=== PATIENT | male | born 1960 | race Caucasian/White ===

== ENCOUNTER 2016-06-30 10:29 | Observation (INO) | payer OTHER ==
[~2016-06-30] VITALS: Ht 176.5 cm; Wt 124.7 kg
[~2016-06-30 10:29] MED LIST: ALEVE220 MG PO; ALPRAZOLAM0.25 M2 PO; AMBIEN10 MG PO; AMLODIPINE BESY10 MG PO; ASPIRIN325 MG PO; Aspirin PO; CHANTIX1 MG PO; FLEXERIL10 MG PO; IMODIUM A-D2 MG PO; LEVAQUIN750 MG PO; LISINOPRIL20 MG PO; LO-DOSE ASPIRIN81 M2 PO; MAG-OXIDE400 MG PO; MAGNESIUM250 M1 PO; MOTRIN800 MG PO; MULTIPLE VITAM1 EACH PO; NAPROSYN500 MG PO; NORCO 5/3251 TABLET PO; NORVASC10 MG PO; Norvasc PO; PERCOCET 5/31 TABLET PO; POTASSIUM GLUCO2 MEQ PO; PRILOSEC OTC20 MG PO; PRILOSEC20 MG PO; PRILOSEC40 MG PO; PRINIVIL20 MG PO; PROAIR HFA8.5 GM IH; PROMETHAZINE HC25 M1 PO; PROZAC40 MG PO; PROzac PO; QUETIAPINE FUM200 MG PO; SEROQUEL200 MG PO; SEROquel PO; Theragran PO; VITAMIN D1000 INTUN PO; ZOFRAN4 MG PO; Zestril,Prinivil PO
[2016-06-30 12:59] LABS: HEMATOCRIT 40.2 % (38.0-50.0); MCH 27.8 PG (29.0-34.0); MCHC 33.6 G/DL (30.0-36.0); MCV 82.9 FL (86-99); MEAN PLAT.VOLUME 11.9 uM^3 (9.0-12.4); PLATELET COUNT 229 K/uL (156-360); RBC DIS.WIDTH-CV 14.4 % (11.8-14.6); RBC DIS.WIDTH-SD 42.8 % (39-53); RED BLOOD COUNT 4.85 M/uL (4.00-5.50); WHITE BLOOD COUNT 9.7 K/uL (4.1-10.2)
[2016-06-30 13:11] LABS: CHLORIDE 105 mEq/L (99-109); SODIUM 138 mEq/L (136-147)
[2016-06-30 13:12] LABS: GLUCOSE 95 mg/dL (70-99)
[2016-06-30 13:14] LABS: ANION GAP 9 MEQ/L (2-14)
[2016-06-30 13:16] LABS: GFR ESTIMATE (CALCULATED) > 59 mL/min/
[2016-06-30 13:17] LABS: UREA NITROGEN (BUN) 8 mg/dL (9-23)
[2016-06-30 13:26] LABS: TROP-I INTERPRETATION NEGATIVE; TROPONIN-I < 0.01 ng/mL (0.0-0.30)
[2016-06-30 16:34] LABS: TROP-I INTERPRETATION NEGATIVE; TROPONIN-I < 0.01 ng/mL (0.0-0.30)
[2016-06-30] MEDS ORDERED: LITHIUM CARBON300 MG PO (16:53)
[2016-06-30] MEDS ORDERED: PROZAC20 MG PO (16:53)
[2016-06-30] MEDS ORDERED: XANAX0.5 MG PO (16:53)
[2016-06-30] MEDS ORDERED: LITHIUM CARBON300 M1 PO (16:53)
[2016-06-30 23:11] LABS: TROP-I INTERPRETATION NEGATIVE; TROPONIN-I < 0.01 ng/mL (0.0-0.30)
[2016-06-30 23:34] VITALS: BP 133/83
[2016-07-01 04:37] VITALS: BP 118/65
[2016-07-01 05:36] LABS: ANION GAP 7 MEQ/L (2-14); CHLORIDE 107 MEQ/L (99-109); GFR ESTIMATE (CALCULATED) > 59 mL/min/; POTASSIUM 4.3 MEQ/L (3.7-5.4); SAMPLE HEMOLYSIS CHECK 0; SAMPLE ICTERIC CHECK 0; SAMPLE LIPEMIA CHECK 0; SODIUM 137 MEQ/L (136-147); UREA NITROGEN (BUN) 9 mg/dL (9-23)
[2016-07-01 05:44] LABS: GLUCOSE 152 mg/dL (70-99)
[2016-07-01 05:53] LABS: TROP-I INTERPRETATION NEGATIVE; TROPONIN-I < 0.01 ng/mL (0.0-0.30)
[2016-07-01 07:52] VITALS: BP 136/75
[2016-07-01 11:48] VITALS: BP 122/80
[2016-07-01 15:45] VITALS: BP 142/92
[2016-07-01 21:11] LABS: C DIFF TOXIN NEGATIVE (NEGATIVE); PROBE CHECK PASS; SPECIMEN PROCESSING CONTROL PASS
[2016-07-02 00:10] VITALS: BP 126/72
[2016-07-02 04:05] VITALS: BP 162/72
[2016-07-02 07:38] VITALS: BP 153/98
[2016-07-02] MEDS ORDERED: LIPITOR40 MG PO (10:29)
[2016-07-02] MEDS ORDERED: ZOFRAN4 MG PO (10:35)
[2016-07-02] MEDS ORDERED: IMODIUM A-D2 M2 PO (10:36)
[2016-07-02 11:03] VITALS: BP 107/57
== END 2016-07-02 13:30 | disposition home or self-care (01) ==
LOC: EME 10:29 → EDOF 18:01 → 5WEST 18:01 → EDOF 18:01 → 5WEST 21:26
PROVIDERS: Family Medicine; Nurse Practitioner Family; Physician Assistant Medical
DX: R07.89 Other chest pain (principal); R11.2 Nausea with vomiting, unspecified; R19.7 Diarrhea, unspecified; F32.9 Major depressive disorder, single episode, unspecified; I10 Essential (primary) hypertension; E78.5 Hyperlipidemia, unspecified; D47.Z2 Castleman disease; J30.9 Allergic rhinitis, unspecified; F41.9 Anxiety disorder, unspecified; R68.84 Jaw pain; M54.2 Cervicalgia; F17.210 Nicotine dependence, cigarettes, uncomplicated; Z87.898 Personal history of other specified conditions; Z83.49 Family history of other endocrine, nutritional and metabolic diseases; Z83.3 Family history of diabetes mellitus; Z80.0 Family history of malignant neoplasm of digestive organs; Z88.5 Allergy status to narcotic agent
CPT/HCPCS: 71020; 71275; 74000; 74177; 80048; 84484; 85027; 87493; 93005; 94660; 99281; 99285; G0378; J1200; J1650; J1885; J2405; J2765; J2920; J7030; S0028

== ENCOUNTER 2016-07-29 07:39 | Emergency (ER) | payer OTHER ==
[~2016-07-29] VITALS: Ht 177.8 cm; Wt 123.2 kg
[~2016-07-29 07:39] MED LIST changes: +IMODIUM A-D2 M2 PO; +LIPITOR40 MG PO; +LITHIUM CARBON300 M1 PO; +LITHIUM CARBON300 MG PO; +PROZAC20 MG PO; +XANAX0.5 MG PO
[2016-07-29] MEDS ORDERED: PROZAC40 MG PO (07:53)
[2016-07-29 08:19] LABS: EOSINOPHIL (%) 4.6 % (0-5); EOSINOPHIL COUNT 0.3 K/uL (0-0.3); HEMATOCRIT 40.1 % (38.0-50.0); IMMATURE GRANULOCYTE (%) 0.4 % (0.0-0.7); INSTRUMENT ABS NEUTROPHIL CT 3.4 K/uL; LYMPHOCYTE COUNT 1.2 K/uL (1.0-2.8); MCH 27.5 PG (29.0-34.0); MCHC 31.7 G/DL (30.0-36.0); MEAN PLAT.VOLUME 12.1 uM^3 (9.0-12.4); MONOCYTE COUNT 0.7 K/uL (0-0.8); NEUTROPHIL (%) 59.7 % (45-76); NEUTROPHIL COUNT 3.4 K/uL (1.8-6.4); RBC DIS.WIDTH-CV 14.4 % (11.8-14.6); RBC DIS.WIDTH-SD 46.2 % (39-53); RED BLOOD COUNT 4.61 M/uL (4.00-5.50)
[2016-07-29 08:26] LABS: PLATELET COUNT 148 K/uL (156-360); WHITE BLOOD COUNT 5.6 K/uL (4.1-10.2)
[2016-07-29 08:27] LABS: CHLORIDE 108 mEq/L (99-109); POTASSIUM 4.2 mEq/L (3.7-5.4); SODIUM 140 mEq/L (136-147)
[2016-07-29 08:29] LABS: GLUCOSE 103 mg/dL (70-99)
[2016-07-29 08:30] LABS: ANION GAP 6 MEQ/L (2-14)
[2016-07-29 08:33] LABS: GFR ESTIMATE (CALCULATED) > 59 mL/min/
[2016-07-29 08:34] LABS: UREA NITROGEN (BUN) 13 mg/dL (9-23)
[2016-07-29 08:56] LABS: INFLUENZA A VIRAL ANTIGEN NEGATIVE; INFLUENZA B VIRAL ANTIGEN NEGATIVE
[2016-07-29] MEDS ORDERED: ZITHROMAX Z-PA250 MG PO (10:10)
[2016-07-29 10:21] VITALS: BP 115/67
== END 2016-07-29 10:22 | disposition home or self-care (01) ==
LOC: EME 07:39
PROVIDERS: Emergency Medicine
DX: B34.9 Viral infection, unspecified (principal); F31.9 Bipolar disorder, unspecified; Z87.891 Personal history of nicotine dependence
CPT/HCPCS: 71020; 80048; 85025; 87502; 99281; 99284

== ENCOUNTER 2017-02-08 14:54 | Emergency (ER) | payer OTHER ==
[~2017-02-08] VITALS: Ht 175.3 cm; Wt 111.5 kg
[~2017-02-08 14:54] MED LIST changes: +LIPITOR20 MG PO; +REQUIP2 MG PO; -XANAX0.5 MG PO; +XANAX1 MG PO; +ZITHROMAX Z-PA250 MG PO
[2017-02-08 15:51] LABS: HEMATOCRIT 42.9 % (38.0-50.0); MCH 27.6 PG (29.0-34.0); MCHC 33.6 G/DL (30.0-36.0); MCV 82.2 FL (86-99); MEAN PLAT.VOLUME 11.1 uM^3 (9.0-12.4); PLATELET COUNT 244 K/uL (156-360); RBC DIS.WIDTH-CV 13.7 % (11.8-14.6); RBC DIS.WIDTH-SD 40.6 % (39-53); RED BLOOD COUNT 5.22 M/uL (4.00-5.50)
[2017-02-08 16:03] LABS: CHLORIDE 103 mEq/L (99-109); POTASSIUM 3.9 mEq/L (3.7-5.4); SODIUM 137 mEq/L (136-147)
[2017-02-08 16:05] LABS: GLUCOSE 99 mg/dL (70-99)
[2017-02-08 16:06] LABS: ANION GAP 11 MEQ/L (2-14)
[2017-02-08 16:07] LABS: TOTAL BILIRUBIN 0.6 mg/dL (0.0-1.0)
[2017-02-08 16:09] LABS: ALKALINE PHOSPHATASE 117 IU/L (3-129); GFR ESTIMATE (CALCULATED) > 59 mL/min/
[2017-02-08 16:10] LABS: UREA NITROGEN (BUN) 12 mg/dL (9-23)
[2017-02-08 17:31] LABS: ADD MIUA? YES; BILIRUBIN NEGATIVE; BLOOD NEGATIVE; COLOR YELLOW ((YELLOW)); GLUCOSE (STRIP) NEGATIVE; KETONES 20; LEUKOCYTES TRACE; NITRITE NEGATIVE; PROTEIN (STRIP) 30
[2017-02-08 17:44] LABS: BACTERIA RARE /HPF; EPITHELIAL CELLS RARE /HPF; MUCUS NONE SEEN /LPF; RED BLOOD CELLS 0-5 /HPF (0-5); UCUL ADDED? YES
[2017-02-08] MEDS ORDERED: LITHIUM CARBON600 MG PO (17:57)
[2017-02-08 18:10] VITALS: BP 137/76
== END 2017-02-08 18:14 | disposition home or self-care (01) ==
LOC: EME 14:54 → RME 14:54
DX: R19.7 Diarrhea, unspecified (principal); E11.9 Type 2 diabetes mellitus without complications; I10 Essential (primary) hypertension; K21.9 Gastro-esophageal reflux disease without esophagitis; G25.81 Restless legs syndrome; F32.9 Major depressive disorder, single episode, unspecified; F41.9 Anxiety disorder, unspecified; D47.Z2 Castleman disease; Z87.891 Personal history of nicotine dependence; F19.10 Other psychoactive substance abuse, uncomplicated
CPT/HCPCS: 80053; 81003; 85027; 87086; 99281; 99285; J0780; J1885

== ENCOUNTER → 2017-02-22 | Outpatient (CLI) | payer OTHER ==
[~2017-02-22] VITALS: Ht 177.8 cm; Wt 110.7 kg
[~2017-02-22] MED LIST changes: +AMOX TR-K CLV1 EAC4 PO; +LITHIUM CARBON600 MG PO
== END | disposition home or self-care (01) ==
LOC: AMB 01-22 11:30
DX: K29.70 Gastritis, unspecified, without bleeding (principal); D12.3 Benign neoplasm of transverse colon; K63.5 Polyp of colon; K64.8 Other hemorrhoids; D47.Z2 Castleman disease; I10 Essential (primary) hypertension; F41.9 Anxiety disorder, unspecified; Z90.49 Acquired absence of other specified parts of digestive tract; Z80.0 Family history of malignant neoplasm of digestive organs; Z80.41 Family history of malignant neoplasm of ovary; Z80.1 Family history of malignant neoplasm of trachea, bronchus and lung; F17.200 Nicotine dependence, unspecified, uncomplicated
CPT/HCPCS: 88305; 88342 TC; 93005; J2250; J3010

== ENCOUNTER → 2017-03-25 | Outpatient (CLI) | payer OTHER | END | disposition home or self-care (01) | LOC: OPR 09:44 → EDSTATUS 10:00 | PROC: 0BBH3ZX Excision of Lung Lingula, Percutaneous Approach, Diagnostic (ICD-10-PCS; principal; 2017-03-25) | DX: C34.12 Malignant neoplasm of upper lobe, left bronchus or lung (principal); F17.200 Nicotine dependence, unspecified, uncomplicated; D47.Z2 Castleman disease; F41.9 Anxiety disorder, unspecified; K21.9 Gastro-esophageal reflux disease without esophagitis; I10 Essential (primary) hypertension; Z80.1 Family history of malignant neoplasm of trachea, bronchus and lung; Z80.41 Family history of malignant neoplasm of ovary; Z80.0 Family history of malignant neoplasm of digestive organs | CPT/HCPCS: 71010; 77012; 88305; 88341 TC; 88342 TC; J3010 ==

== ENCOUNTER → 2017-04-09 | Outpatient (CLI) | payer OTHER ==
[2017-04-09 09:31] LABS: BASE EXCESS 2.6 mEq/L (-3 to +3); BICARBONATE 27.2 mEq/L (22-26); CARBOXY HGB 2.3 % (0-5); COMMENTS - BLOOD GASES A+C+; DEVICE RA; FI02 0.21 %; METHEMOGLOBIN 0.9 % (0-1.5); PCO2 41 mm Hg (35-45); PO2 72 mm Hg (80-100); SITE RR; TOTAL RESP RATE 18 resp/min; pH 7.43 (7.35-7.45)
== END | disposition home or self-care (01) ==
LOC: RES 09:14
PROVIDERS: Thoracic Surgery (Cardiothoracic Vascular Surgery)
DX: C34.90 Malignant neoplasm of unspecified part of unspecified bronchus or lung (principal); I45.4 Nonspecific intraventricular block; R94.31 Abnormal electrocardiogram [ECG] [EKG]
CPT/HCPCS: 36600; 82803; 93005; 94060; 94726; 94729

== ENCOUNTER 2017-04-16 05:14 | Day surgery (SDC) | payer OTHER ==
[~2017-04-16] VITALS: Ht 177.8 cm; Wt 110.7 kg
[2017-04-16] MEDS ORDERED: NEURONTIN300 MG PO (05:55)
[2017-04-16 05:59] VITALS: BP 103/59
[2017-04-16] MEDS ORDERED: COLACE100 MG PO (09:09)
[2017-04-16] MEDS ORDERED: HYDROCODON-ACE1 EAC7 PO (09:09)
[2017-04-16 10:38] VITALS: BP 117/59
[2017-04-16 11:21] VITALS: BP 118/70
== END 2017-04-16 11:30 | disposition home or self-care (01) ==
LOC: SDC 05:14
PROC: 07B74ZX Excision of Thorax Lymphatic, Percutaneous Endoscopic Approach, Diagnostic (ICD-10-PCS; principal; 2017-04-16)
DX: C34.12 Malignant neoplasm of upper lobe, left bronchus or lung (principal); R59.1 Generalized enlarged lymph nodes; K21.9 Gastro-esophageal reflux disease without esophagitis; I10 Essential (primary) hypertension; F41.8 Other specified anxiety disorders; Z87.891 Personal history of nicotine dependence
CPT/HCPCS: 86850; 86900; 86901; 88305; J0330; J0690; J1100; J1170; J1885; J2405; J2710; J2765; J3010

== ENCOUNTER 2017-05-19 21:12 | Inpatient (IN) | payer OTHER ==
[~2017-05-19] VITALS: Ht 175.3 cm; Wt 110.4 kg
[~2017-05-19 21:12] MED LIST changes: +COLACE100 MG PO; +HYDROCODON-ACE1 EAC7 PO; +NEURONTIN300 MG PO
[2017-05-20 11:00] VITALS: BP 122/74
[2017-05-20 21:40] VITALS: BP 145/107
[2017-05-20 22:00] VITALS: BP 144/95
[2017-05-20 23:00] VITALS: BP 152/105
[2017-05-21] VITALS (9 sets, daily range): BP systolic 113–147; BP diastolic 68–108
[2017-05-21 07:53] LABS: HEMATOCRIT 38.1 % (38.0-50.0); HEMOGLOBIN 12.3 G/DL (12.5-16.6); MCH 28.3 PG (29.0-34.0); MCHC 32.3 G/DL (30.0-36.0); MCV 87.6 FL (86-99); PLATELET COUNT 187 K/uL (156-360); RBC DIS.WIDTH-CV 13.9 % (11.8-14.6); RBC DIS.WIDTH-SD 45.1 % (39-53); RED BLOOD COUNT 4.35 M/uL (4.00-5.50); WHITE BLOOD COUNT 12.7 K/uL (4.1-10.2)
[2017-05-21 08:13] LABS: CHLORIDE 105 MEQ/L (99-109); CREATININE 0.8 MG/DL (0.6-1.3); GFR ESTIMATE (CALCULATED) > 59 mL/min/ (58.99-99999); GLUCOSE 137 mg/dL (70-99); POTASSIUM 4.5 MEQ/L (3.7-5.4); SODIUM 138 MEQ/L (136-147); UREA NITROGEN (BUN) 10 mg/dL (9-23)
[2017-05-22] VITALS (9 sets, daily range): BP systolic 101–136; BP diastolic 71–92
[2017-05-22 05:08] LABS: HEMATOCRIT 38.3 % (38.0-50.0); HEMOGLOBIN 12.4 G/DL (12.5-16.6); MCH 27.9 PG (29.0-34.0); MCHC 32.4 G/DL (30.0-36.0); MCV 86.3 FL (86-99); PLATELET COUNT 190 K/uL (156-360); RBC DIS.WIDTH-CV 13.8 % (11.8-14.6); RBC DIS.WIDTH-SD 43.5 % (39-53); RED BLOOD COUNT 4.44 M/uL (4.00-5.50); WHITE BLOOD COUNT 12.6 K/uL (4.1-10.2)
[2017-05-22 05:21] LABS: CHLORIDE 107 mEq/L (99-109); POTASSIUM 4.2 mEq/L (3.7-5.4); SODIUM 134 mEq/L (136-147)
[2017-05-22 05:23] LABS: GLUCOSE 131 mg/dL (70-99)
[2017-05-22 05:27] LABS: CREATININE 0.8 mg/dL (0.6-1.3); GFR ESTIMATE (CALCULATED) > 59 mL/min/ (58.99-99999)
[2017-05-22 05:28] LABS: UREA NITROGEN (BUN) 8 mg/dL (9-23)
[2017-05-23] VITALS (9 sets, daily range): BP systolic 81–133; BP diastolic 63–94
[2017-05-23 05:46] LABS: HEMATOCRIT 38.5 % (38.0-50.0); HEMOGLOBIN 12.2 G/DL (12.5-16.6); MCHC 31.7 G/DL (30.0-36.0); MCV 88.5 FL (86-99); PLATELET COUNT 194 K/uL (156-360); RBC DIS.WIDTH-CV 13.9 % (11.8-14.6); RBC DIS.WIDTH-SD 45.1 % (39-53); RED BLOOD COUNT 4.35 M/uL (4.00-5.50); WHITE BLOOD COUNT 14.5 K/uL (4.1-10.2)
[2017-05-23 06:05] LABS: CHLORIDE 100 MEQ/L (99-109); CREATININE 1.2 MG/DL (0.6-1.3); GFR ESTIMATE (CALCULATED) > 59 mL/min/ (58.99-99999); GLUCOSE 124 mg/dL (70-99); POTASSIUM 4.5 MEQ/L (3.7-5.4); SODIUM 135 MEQ/L (136-147); UREA NITROGEN (BUN) 21 mg/dL (9-23)
[2017-05-24] VITALS (10 sets, daily range): BP systolic 84–128; BP diastolic 56–95
[2017-05-25] VITALS (10 sets, daily range): BP systolic 102–149; BP diastolic 57–93
[2017-05-26] VITALS (11 sets, daily range): BP systolic 85–132; BP diastolic 41–79
[2017-05-26 06:13] LABS: HEMATOCRIT 32.4 % (38.0-50.0); HEMOGLOBIN 10.6 G/DL (12.5-16.6); MCHC 32.7 G/DL (30.0-36.0); MCV 85.7 FL (86-99); PLATELET COUNT 212 K/uL (156-360); RBC DIS.WIDTH-CV 13.5 % (11.8-14.6); RBC DIS.WIDTH-SD 42.4 % (39-53); RED BLOOD COUNT 3.78 M/uL (4.00-5.50); WHITE BLOOD COUNT 9.4 K/uL (4.1-10.2)
[2017-05-26 06:22] LABS: CHLORIDE 104 mEq/L (99-109); POTASSIUM 4.1 mEq/L (3.7-5.4); SODIUM 134 mEq/L (136-147)
[2017-05-26 06:24] LABS: GLUCOSE 114 mg/dL (70-99)
[2017-05-26 06:28] LABS: GFR ESTIMATE (CALCULATED) > 59 mL/min/ (58.99-99999)
[2017-05-26 06:29] LABS: UREA NITROGEN (BUN) 9 mg/dL (9-23)
[2017-05-26 06:30] LABS: CREATININE 0.7 mg/dL (0.6-1.3)
[2017-05-27] VITALS (7 sets, daily range): BP systolic 100–130; BP diastolic 57–73
[2017-05-28] VITALS: BP 121/66; BP 96/55
[2017-05-28 01:17] VITALS: BP 121/66
[2017-05-28 07:32] VITALS: BP 124/69
[2017-05-28 11:27] VITALS: BP 126/84
[2017-05-28 15:49] VITALS: BP 127/84
[2017-05-28 20:39] VITALS: BP 125/65
[2017-05-29 00:25] VITALS: BP 97/56
[2017-05-29 08:18] VITALS: BP 100/53
[2017-05-29 13:05] VITALS: BP 129/83
[2017-05-29 16:15] VITALS: BP 136/77
[2017-05-29 20:05] VITALS: BP 147/77
[2017-05-30 00:32] VITALS: BP 134/65
[2017-05-30 09:36] VITALS: BP 135/88
[2017-05-30 17:02] VITALS: BP 112/60
[2017-05-30 23:39] VITALS: BP 106/57
[2017-05-31 06:58] VITALS: BP 117/68
[2017-05-31 15:46] VITALS: BP 117/56
[2017-06-01 00:20] VITALS: BP 96/51
[2017-06-01 07:38] VITALS: BP 118/68
[2017-06-01 16:07] VITALS: BP 107/63
[2017-06-01 20:22] VITALS: BP 124/72
[2017-06-01 23:47] VITALS: BP 114/56
[2017-06-02 14:56] LABS: BASOPHIL (%) 0.6 % (0-1); BASOPHIL COUNT 0.1 K/uL (0-0.1); EOSINOPHIL (%) 5.5 % (0-5); EOSINOPHIL COUNT 0.5 K/uL (0-0.3); HEMATOCRIT 37.8 % (38.0-50.0); HEMOGLOBIN 11.9 G/DL (12.5-16.6); IMMATURE GRANULOCYTE (%) 0.3 % (0.0-0.7); LYMPHOCYTE (%) 17.2 % (15-42); LYMPHOCYTE COUNT 1.7 K/uL (1.0-2.8); MCH 27.2 PG (29.0-34.0); MCHC 31.5 G/DL (30.0-36.0); MCV 86.5 FL (86-99); MONOCYTE (%) 7.6 % (3-12); MONOCYTE COUNT 0.7 K/uL (0-0.8); NEUTROPHIL (%) 68.8 % (45-76); NEUTROPHIL COUNT 6.7 K/uL (1.8-6.4); RBC DIS.WIDTH-CV 13.3 % (11.8-14.6); RBC DIS.WIDTH-SD 41.5 % (39-53); RED BLOOD COUNT 4.37 M/uL (4.00-5.50); WHITE BLOOD COUNT 9.7 K/uL (4.1-10.2)
[2017-06-02 15:04] LABS: CHLORIDE 103 MEQ/L (99-109); POTASSIUM 4.8 MEQ/L (3.7-5.4); SODIUM 134 MEQ/L (136-147)
[2017-06-02 15:05] LABS: PLATELET COUNT 355 K/uL (156-360)
[2017-06-02 15:10] LABS: GFR ESTIMATE (CALCULATED) > 59 mL/min/ (58.99-99999); GLUCOSE 119 mg/dL (70-99); UREA NITROGEN (BUN) 19 mg/dL (9-23)
[2017-06-02 16:27] VITALS: BP 115/62
[2017-06-02 23:36] VITALS: BP 94/50
[2017-06-03 07:31] VITALS: BP 114/72
[2017-06-03 16:42] VITALS: BP 109/70
[2017-06-03 22:27] VITALS: BP 108/60
[2017-06-03 23:31] VITALS: BP 108/60
[2017-06-04 07:05] VITALS: BP 112/68
[2017-06-04 15:20] VITALS: BP 121/61
[2017-06-04] MEDS ORDERED: LOPRESSOR25 MG PO (18:27)
[2017-06-04] MEDS ORDERED: VENTOLIN HFA18 GM IH (18:27)
[2017-06-04] MEDS ORDERED: ENDOCET 5-3251 EACH PO (18:27)
[2017-06-04] MEDS ORDERED: MUCINEX600 MG PO (18:27)
[2017-06-04] MEDS ORDERED: DIGOXIN250 MCG PO (18:27)
[2017-06-04] MEDS ORDERED: MOTRIN600 MG PO (18:27)
[2017-06-04 23:31] VITALS: BP 100/56
[2017-06-05 07:32] VITALS: BP 127/59
[2017-06-05 16:21] VITALS: BP 107/59
[2017-06-05 23:25] VITALS: BP 92/52
[2017-06-06 07:17] VITALS: BP 119/73
== END 2017-06-06 13:02 | disposition home health service (06) | DRG 164 ==
LOC: ENRESERV 21:12 → 2SOUTH 05-20 09:28 → ENRESERV 05-20 16:44 → CANRESERV 05-20 19:25 → ENRESERV 05-20 19:40 → 4WEST 05-20 21:25 → ENRESERV 05-26 14:03 → 5EAST 05-26 19:25
PROVIDERS: Thoracic Surgery (Cardiothoracic Vascular Surgery)
DX: C34.32 Malignant neoplasm of lower lobe, left bronchus or lung (principal); G47.33 Obstructive sleep apnea (adult) (pediatric); E66.01 Morbid (severe) obesity due to excess calories; I10 Essential (primary) hypertension; J45.909 Unspecified asthma, uncomplicated; Z68.41 Body mass index [BMI] 40.0-44.9, adult; D47.Z2 Castleman disease; J98.11 Atelectasis; J93.82 Other air leak; J93.9 Pneumothorax, unspecified; R06.02 Shortness of breath; Z87.891 Personal history of nicotine dependence; F31.9 Bipolar disorder, unspecified; K21.9 Gastro-esophageal reflux disease without esophagitis; Z90.49 Acquired absence of other specified parts of digestive tract; Z80.8 Family history of malignant neoplasm of other organs or systems; F43.10 Post-traumatic stress disorder, unspecified; F41.9 Anxiety disorder, unspecified
CPT/HCPCS: 71045; 71046; 80048; 82948; 85025; 85027; 85610; 86850; 86900; 86901; 86920; 87502; 87641; 88300; 88305; 88309; 88313; 94002; 94010; 94640; 94640 76; 94660; 94760; 94799; 97530 GO; 99202; J0330; J0690; J1100; J1160; J1170; J1644; J1885; J2250; J2405; J2704; J3010; J7050; J7120; S0020

== ENCOUNTER 2017-10-10 19:23 | Emergency (ER) | payer OTHER ==
[~2017-10-10] VITALS: Ht 175.3 cm; Wt 119.3 kg
[~2017-10-10 19:23] MED LIST changes: +DIGOXIN250 MCG PO; +ENDOCET 5-3251 EACH PO; +LOPRESSOR25 MG PO; +MOTRIN600 MG PO; +MUCINEX600 MG PO; +VENTOLIN HFA18 GM IH
[2017-10-10 19:56] VITALS: BP 126/85
[2017-10-10 20:34] LABS: HEMATOCRIT 40.1 % (38.0-50.0); HEMOGLOBIN 13.3 G/DL (12.5-16.6); MCH 27.1 PG (29.0-34.0); MCHC 33.2 G/DL (30.0-36.0); MCV 81.7 FL (86-99); PLATELET COUNT 235 K/uL (156-360); RBC DIS.WIDTH-CV 14.5 % (11.8-14.6); RBC DIS.WIDTH-SD 43.1 % (39-53); RED BLOOD COUNT 4.91 M/uL (4.00-5.50); WHITE BLOOD COUNT 8.4 K/uL (4.1-10.2)
[2017-10-10 20:45] LABS: CHLORIDE 103 mEq/L (99-109); POTASSIUM 4.2 mEq/L (3.7-5.4); SODIUM 138 mEq/L (136-147)
[2017-10-10 20:47] LABS: GLUCOSE 93 mg/dL (70-99)
[2017-10-10 20:50] LABS: CREATININE 0.9 mg/dL (0.6-1.3); GFR ESTIMATE (CALCULATED) > 59 mL/min/ (58.99-99999)
[2017-10-10 20:51] LABS: UREA NITROGEN (BUN) 14 mg/dL (9-23)
[2017-10-10 20:56] LABS: TROP-I INTERPRETATION NEGATIVE; TROPONIN-I < 0.01 ng/mL (0.0-0.30)
== END 2017-10-10 23:51 | disposition home or self-care (01) ==
LOC: EME 19:23
DX: R60.0 Localized edema (principal); R06.00 Dyspnea, unspecified; J98.4 Other disorders of lung; I45.10 Unspecified right bundle-branch block; R94.31 Abnormal electrocardiogram [ECG] [EKG]; J45.909 Unspecified asthma, uncomplicated; F32.9 Major depressive disorder, single episode, unspecified; F31.9 Bipolar disorder, unspecified; F41.0 Panic disorder [episodic paroxysmal anxiety]; Z87.891 Personal history of nicotine dependence; Z87.19 Personal history of other diseases of the digestive system; Z87.898 Personal history of other specified conditions; Z98.890 Other specified postprocedural states; Z90.2 Acquired absence of lung [part of]; Z90.49 Acquired absence of other specified parts of digestive tract; Z85.118 Personal history of other malignant neoplasm of bronchus and lung
CPT/HCPCS: 71046; 71275; 80048; 83880; 84484; 85027; 93005; 93971; 99281; 99284; J7030

== ENCOUNTER → 2017-11-29 | Outpatient (CLI) | payer OTHER ==
[~2017-11-29] MED LIST changes: +CREON 241 CAPSULE PO; +HYOSCYAMINE0.125 M1 SL; +PEG PREP PO; +VITAMIN D31000 UNIT PO
== END | disposition home or self-care (01) ==
LOC: OPR 08:17 → EDSTATUS 09:00 → OPR 09:00
PROC: 07B73ZX Excision of Thorax Lymphatic, Percutaneous Approach, Diagnostic (ICD-10-PCS; principal; 2017-11-29)
DX: C77.1 Secondary and unspecified malignant neoplasm of intrathoracic lymph nodes (principal); C34.90 Malignant neoplasm of unspecified part of unspecified bronchus or lung
CPT/HCPCS: 71045; 77012; 88305; 88341 TC; 88342 TC; J3010